=== PATIENT | male | born 1945 | race Caucasian/White ===

== ENCOUNTER 2022-01-11 07:16 | Observation (INO) | payer MEDICARE ==
[2022-01-06 10:56] LABS: BASOPHILS # (AUTO) 0.1 (0.0-0.1); BASOPHILS % 1.8 % (0.0-1.0); EOSINOPHILS # (AUTO) 0.1 (0.0-0.4); HEMATOCRIT 42.8 % (38.2-49.6); HEMOGLOBIN 14.4 g/dL (14.0-18.0); MEAN CORPUSCULAR HEMOGLOBIN 32.7 pg (28-32); MEAN CORPUSCULAR HGB CONC 33.6 g/dL (31-35); MEAN CORPUSCULAR VOLUME 97.3 fL (81-99); MONOCYTES # (AUTO) 0.6 (0.2-0.8); MONOCYTES % 12.6 % (4.4-11.3); NEUTROPHILS # (AUTO) 2.8 (2.1-6.9); NEUTROPHILS % 62.4 % (38.7-80.0); PLATELET COUNT 311 x10e3/uL (140-360); RED CELL DISTRIBUTION WIDTH 14.2 % (11.7-14.4)
[~2022-01-11 07:16] MED LIST: ATORVASTATIN CA20 MG PO; ENTYVIO300 MG; ROPIVACAINE 246.25 MG, EPINEPHRINE HCL 1:1000 1ML 0.5 MG, CLONIDINE HCL 0.08 MG, KETORO... INJ ONE; TESTOSTERONE5 GM INJ; TRICOR145 MG PO
[2022-01-11] MEDS ORDERED: GABAPENTIN 300 MG CAP ONE (07:33)
[2022-01-11] MEDS ORDERED: CELECOXIB 200 MG CAP ONE (07:33)
[2022-01-11] MEDS ORDERED: DEXAMETHASONE SOD PHOS 10 MG/1 ML VIAL ONE (07:33)
[2022-01-11] MEDS ORDERED: SODIUM CHLORIDE 0.9% 50ML 100 ML ONE (07:34)
[2022-01-11] MEDS ORDERED: TRANEXAMIC ACID 1,000 MG/10 ML ML ONE (08:58)
[2022-01-11] MEDS ORDERED: SODIUM CHLORIDE 0.9% 500ML 500 ML ONE (08:58)
[2022-01-11] MEDS ORDERED: Vancomycin IV 1,000 MG ONE (08:58)
[2022-01-11] MEDS ORDERED: ROPIVACAINE 0.5% 5 MG/ML 30 ML SDV ONE (09:22)
[2022-01-11] MEDS ORDERED: ACETAMINOPHEN 1000 MG/100 ML 100 ML IV ONE (10:26)
[2022-01-11] MEDS ORDERED: DOCUSATE SODIUM 100 MG CAP PO PRN (11:00)
[2022-01-11] MEDS ORDERED: ACETAMINOPHEN 650 MG SUPP PR PRN (11:00)
[2022-01-11] MEDS ORDERED: DIPHENHYDRAMINE HCL INJ 50 MG/ML VIAL IV PRN (11:00)
[2022-01-11] MEDS ORDERED: ONDANSETRON HCL INJ 2MG/ML 2ML 2 MG/ML VIAL IV PRN (11:00)
[2022-01-11] MEDS ORDERED: HYDROCODONE/APAP 7.5MG-325MG 1 EA TAB PO PRN (11:00)
[2022-01-11] MEDS ORDERED: KETOROLAC TROMETHAMINE 30 MG/ML VIAL IV PRN (11:00)
[2022-01-11] MEDS ORDERED: HYDROCODONE/APAP 5MG-325MG TAB PO PRN (11:00)
[2022-01-11] MEDS ORDERED: MEPERIDINE HCL INJ 25 MG/ML VIAL ONE (12:05)
[2022-01-11] MEDS ORDERED: FENTANYL CITRATE/PF 100MCG/2 ML INJ ONE (12:20)
[2022-01-11] MEDS ORDERED: MIDAZOLAM HCL 2 MG/2 ML VIAL ONE (12:20)
[2022-01-11] MEDS ORDERED: ONDANSETRON HCL INJ 2MG/ML 2ML 2 MG/ML VIAL ONE ×2 (13:56→17:41)
[2022-01-11 14:36] VITALS: BP 132/73
[2022-01-11 15:56] VITALS: BP 135/78
[2022-01-11] MEDS ORDERED: SODIUM CHLORIDE 0.9% 1000ML 1,000 ML IV SCH (16:00)
[2022-01-11] MEDS ORDERED: SODIUM CHLORIDE 0.9% 250ML 250 ML ONE (16:50)
[2022-01-11] MEDS ORDERED: CELECOXIB 200 MG CAP PO SCH (17:00)
[2022-01-11] MEDS ORDERED: Cefazolin 1 GM in SODIUM CHLORIDE 0.9% 50ML 50 ML IV SCH (17:00)
[2022-01-11] MEDS ORDERED: LIDOCAINE HCL 2% LOCAL INJ 5 ML SDV VIAL INJ ONE (17:41)
[2022-01-11] MEDS ORDERED: POVIDONE IODINE 0.05% 0.05 % ML PO ONE (17:41)
[2022-01-11] MEDS ORDERED: DEXAMETHASONE SOD PHOS INJ 4 MG/ML SDV ONE (17:41)
[2022-01-11] MEDS ORDERED: SEVOFLURANE INHAL SOLN 250 ML PEN BTL ONE (17:41)
[2022-01-11] MEDS ORDERED: PROPOFOL IV EMULSION 10 MG/ML 20 ML VIAL ONE (17:41)
[2022-01-11] MEDS ORDERED: ONDANSETRON HCL 4 MG ORAL DISINTEGRATING TAB PO PRN (18:15)
[2022-01-11] MEDS ORDERED: ASPIRIN 325 MG TAB PO SCH (20:00)
[2022-01-11] MEDS ORDERED: ZOLPIDEM TARTRATE 5 MG TAB PO PRN (21:00)
[2022-01-12] MEDS ORDERED: ACETAMINOPHEN 1000 MG/100 ML IV PRN (11:00)
== END 2022-01-11 17:49 | disposition home or self-care (01) ==
LOC: OR 07:16 → PACU V 14:45 → MED/SURG 14:47
PROVIDERS: ADMIT Specialist; ATTEND Specialist
DX: M17.12 Unilateral primary osteoarthritis, left knee (principal); K21.9 Gastro-esophageal reflux disease without esophagitis; Z01.812 Encounter for preprocedural laboratory examination; Z01.818 Encounter for other preprocedural examination; Z85.828 Personal history of other malignant neoplasm of skin; Z20.822 Contact with and (suspected) exposure to COVID-19
CPT/HCPCS: 27447; 36415; 71046; 73560; 85025; 86850; 86900; 86920; 93005; 94799; 97110; 97116; 97161; C1713 ×2; C1776 ×3; G0378; J0131; J0171; J0690; J1100 ×2; J1885; J2001; J2175; J2250; J2405; J2704; J2795; J3010; J3370; J7040; J7050; U0002

== ENCOUNTER 2024-06-25 06:05 | Observation (INO) | payer MEDICARE ==
[2024-06-19 10:30] LABS: BASOPHILS # (AUTO) 0.1 (0.0-0.1); EOSINOPHILS % 0.8 % (0.0-6.0); HEMATOCRIT 48.3 % (38.2-49.6); HEMOGLOBIN 16.4 g/dL (14.0-18.0); LYMPHOCYTES # (AUTO) 0.8 (1.0-3.2); LYMPHOCYTES % 15.7 % (18.0-39.1); MEAN CORPUSCULAR HEMOGLOBIN 33.8 pg (28-32); MEAN CORPUSCULAR VOLUME 99.6 fL (81-99); MONOCYTES # (AUTO) 0.6 (0.2-0.8); NEUTROPHILS # (AUTO) 3.6 (2.1-6.9); NEUTROPHILS % 70.3 % (38.7-80.0); PLATELET COUNT 232 x10e3/uL (140-360); RED BLOOD COUNT 4.85 x10e6/uL (4.3-5.7); WHITE BLOOD COUNT 5.09 x10e3/uL (4.8-10.8)
[~2024-06-25 06:05] MED LIST changes: -ROPIVACAINE 246.25 MG, EPINEPHRINE HCL 1:1000 1ML 0.5 MG, CLONIDINE HCL 0.08 MG, KETORO... INJ ONE
[2024-06-25] MEDS: CEFAZOLIN SODIUM 2 GM ONE (06:28)
[2024-06-25] MEDS: DEXAMETHASONE SOD PHOS 10 MG/1 ML VIAL ONE (06:29)
[2024-06-25] MEDS: CELECOXIB 200 MG CAP ONE (06:29)
[2024-06-25] MEDS: GABAPENTIN 300 MG CAP ONE (06:29)
[2024-06-25] MEDS ORDERED: LACTATED RINGER'S 1,000 ML ONE (06:30)
[2024-06-25] MEDS ORDERED: TRANEXAMIC ACID 20 ML ONE (07:02)
[2024-06-25] MEDS ORDERED: Vancomycin IV 500 MG ONE (07:02)
[2024-06-25] MEDS ORDERED: SODIUM CHLORIDE 0.9% 500ML 500 ML ONE (07:04)
[2024-06-25] MEDS ORDERED: SUGAMMADEX SODIUM 200 MG/2 ML VIAL IV ONE (07:43)
[2024-06-25] MEDS ORDERED: ROPIVACAINE 246.25 MG, EPINEPHRINE HCL 1:1000 1ML 0.5 MG, CLONIDINE HCL 0.08 MG, KETORO... INJ ONE (08:00)
[2024-06-25] MEDS ORDERED: DIPHENHYDRAMINE HCL INJ 50 MG/ML VIAL IV PRN (09:15)
[2024-06-25] MEDS ORDERED: SODIUM CHLORIDE 0.9% 1000ML 1,000 ML IV SCH (09:15)
[2024-06-25] MEDS ORDERED: HYDROCODONE/APAP 7.5MG-325MG 1 EA TAB PO PRN (09:15)
[2024-06-25] MEDS ORDERED: HYDROCODONE/APAP 5MG-325MG TAB PO PRN (09:15)
[2024-06-25] MEDS ORDERED: ONDANSETRON HCL INJ 2MG/ML 2ML 2 MG/ML VIAL IV PRN (09:15)
[2024-06-25] MEDS ORDERED: DOCUSATE SODIUM 100 MG CAP PO PRN (09:15)
[2024-06-25 09:22] VITALS: TEMP 97.4
[2024-06-25] MEDS ORDERED: ASPIRIN81 MG PO (11:47)
[2024-06-25] MEDS ORDERED: MIDAZOLAM HCL 2 MG/2 ML VIAL ONE (11:57)
[2024-06-25] MEDS ORDERED: FENTANYL CITRATE/PF 100MCG/2 ML INJ ONE ×2 (11:57→12:04)
[2024-06-25] MEDS ORDERED: SUCCINYLCHOLINE CHLORIDE 20 MG/ML 10ML VIAL ONE (12:37)
[2024-06-25] MEDS ORDERED: KETOROLAC TROMETHAMINE 30 MG/ML VIAL ONE (12:37)
[2024-06-25] MEDS ORDERED: ONDANSETRON HCL INJ 2MG/ML 2ML 2 MG/ML VIAL ONE (12:37)
[2024-06-25] MEDS ORDERED: ROCURONIUM BROMIDE 10 MG/ML 5ML VIAL IV ONE (12:37)
[2024-06-25] MEDS ORDERED: PROPOFOL IV EMULSION 10 MG/ML 20 ML VIAL ONE (12:37)
[2024-06-25] MEDS ORDERED: EPHEDRINE SULFATE INJ 50 MG/ML VIAL ONE (12:37)
[2024-06-25] MEDS ORDERED: SEVOFLURANE INHAL SOLN 250 ML PEN BTL ONE (12:37)
[2024-06-25] MEDS ORDERED: DEXAMETHASONE SOD PHOS INJ 4 MG/ML SDV ONE (12:37)
[2024-06-25 12:40] VITALS: BP 135/71; PULSE 86; RESP 18; O2SAT 99
[2024-06-25] MEDS ORDERED: EPINEPHRINE HCL 1:1000 1ML 1 MG/ML AMP ONE (12:46)
[2024-06-25] MEDS ORDERED: ROPIVACAINE 0.5% 5 MG/ML 30 ML SDV ONE (12:46)
[2024-06-25] MEDS ORDERED: CELECOXIB 200 MG CAP PO SCH (17:00)
[2024-06-26] MEDS ORDERED: ASPIRIN 325 MG TAB PO SCH (09:00)
[2024-06-26] MEDS ORDERED: ACETAMINOPHEN 1000 MG/100 ML IV PRN (09:15)
== END 2024-06-25 14:15 | disposition home health service (06) ==
LOC: OR 06:05 → PACU V 09:07
PROVIDERS: ADMIT Specialist; ATTEND Specialist
DX: M17.11 Unilateral primary osteoarthritis, right knee (principal); E78.00 Pure hypercholesterolemia, unspecified; K21.9 Gastro-esophageal reflux disease without esophagitis; Z96.652 Presence of left artificial knee joint; Z01.810 Encounter for preprocedural cardiovascular examination; Z01.812 Encounter for preprocedural laboratory examination; Z01.818 Encounter for other preprocedural examination; Z79.899 Other long term (current) drug therapy
CPT/HCPCS: 27447; 36415; 71046; 73560; 85025; 93005; 97110; 97116; 97161; 97530 ×2; C1713 ×2; C1776 ×4; G0378; J0171; J0330; J1100 ×2; J1885; J2250; J2405; J2704; J2795; J3010; J3370; J7040; J7121